=== PATIENT | female | born 1960 | race Native Hawaiian/Other Pacific Islander ===

== ENCOUNTER 2019-09-11 07:08 | Day surgery (SDC) | payer OTHER ==
[~2019-09-11] VITALS: Ht 30.5 cm; Wt 0.5 kg
== END 2019-09-11 09:12 | disposition home or self-care (01) ==
LOC: OR 07:08
PROC: 3E0T3BZ Introduction of Anesthetic Agent into Peripheral Nerves and Plexi, Percutaneous Approach (ICD-10-PCS; principal; 2019-09-11)
DX: M25.562 Pain in left knee (principal); M17.12 Unilateral primary osteoarthritis, left knee
CPT/HCPCS: J2001

== ENCOUNTER 2019-09-25 07:44 | Day surgery (SDC) | payer OTHER ==
[~2019-09-25] VITALS: Ht 30.5 cm; Wt 0.5 kg
== END 2019-09-25 09:41 | disposition home or self-care (01) ==
LOC: OR 07:44
PROC: 3E0T3BZ Introduction of Anesthetic Agent into Peripheral Nerves and Plexi, Percutaneous Approach (ICD-10-PCS; principal; 2019-09-25)
DX: M25.562 Pain in left knee (principal); M17.12 Unilateral primary osteoarthritis, left knee
CPT/HCPCS: J2001